=== PATIENT | male | born 1970 | race Caucasian/White ===

== ENCOUNTER 2025-02-08 16:09 | Emergency (ER) | payer OTHER ==
[2025-02-08] MEDS: SODIUM CHLORIDE 1,000 ML IV STA ×2 (16:28→17:00)
[2025-02-08] MEDS: ACETAMINOPHEN 325 MG TABLET (FP) PO ONE (16:29)
[2025-02-08 16:47] VITALS: BP 134/78; PULSE 88; RESP 18; TEMP 98.6; BMI 39.9
[2025-02-08 16:48] LABS: ABSOLUTE IMMATURE GRANULOCYTES 0.02 x10^3/uL (0.0-0.031); BASOPHILS # 0.03 x10^3/uL (0.01-0.08); EOSINOPHIL % 1.3 % (0.8-7.0); EOSINOPHILS # 0.10 x10^3/uL (0.04-0.54); MCHC 33.1 g/dl (32.3-36.5); MEAN CELL VOLUME 81.1 fl (79.0-92.2); MEAN PLT VOLUME 12.8 fl (9.4-12.4); MONOCYTE # 0.71 x10^3/uL (0.30-0.82); MONOCYTE % 9.0 % (5.3-12.2); RDW 12.8 % (12.2-16.1)
[2025-02-08 17:12] LABS: ALK PHOS 120 U/L (45-117); CO2 27 mmol/L (21-32); CREATININE 1.0 mg/dl (0.6-1.3); SGOT/AST 28 U/L (15-37); SGPT/ALT 22 U/L (7-52); TOT PROT 6.1 g/dl (6.4-8.2)
[2025-02-08 17:15] LABS: GLUCOSE,RANDOM 636 mg/dl (74-106)
[2025-02-08 18:04] LABS: BG HCT 47.0 % (35.4-49); VENOUS BASE EXCESS -3.1 mmol/L (-2-2); VENOUS O2 SATURATION 66.6 % (70-80); VENOUS PCO2 41.5 mmHg (38-52); VENOUS PH 7.35 (7.310-7.410)
[2025-02-08] MEDS: LACTATED RINGERS SOLUTION 1,000 ML/1,000 ML INFUS.BAG IV STA (18:22)
[2025-02-08 18:48] LABS: LACTIC ACID 2.1 mmol/L (0.4-2.0)
[2025-02-08 18:49] LABS: HIV INTERPRETATION NEGATIVE (NEGATIVE)
[2025-02-08 18:50] LABS: HCV DIAGNOSTIC IN-HOUSE W/RFLX NON-REACTIVE (NONREACTIVE)
[2025-02-08] MEDS ORDERED: INSULIN REGULAR HUMAN 100 UNITS/ML *VIAL ONE (19:41)
[2025-02-08] MEDS: INSULIN REGULAR HUMAN 100 UNITS/ML *VIAL IVPUSH ONE (19:42)
[2025-02-08 19:44] LABS: CO2 27 mmol/L (21-32); CREATININE 0.8 mg/dl (0.6-1.3); GLUCOSE,RANDOM 428 mg/dl (74-106)
[2025-02-08] MEDS ORDERED: metFORMIN HCL 500 MG TABLET (FP) ONE (20:47)
[2025-02-08] MEDS: metFORMIN HCL 500 MG TABLET (FP) PO ONE (20:51)
== END 2025-02-08 20:55 | disposition home or self-care (01) ==
LOC: FER 16:09
PROC: 3E033VG Introduction of Insulin into Peripheral Vein, Percutaneous Approach (ICD-10-PCS; principal; 2025-02-08)
PROC: 3E0337Z Introduction of Electrolytic and Water Balance Substance into Peripheral Vein, Percutaneous Approach (ICD-10-PCS; 2025-02-08)
PROC: 3E0337Z Introduction of Electrolytic and Water Balance Substance into Peripheral Vein, Percutaneous Approach (ICD-10-PCS; 2025-02-08)
DX: E11.65 Type 2 diabetes mellitus with hyperglycemia (principal); R53.83 Other fatigue; R51.9 Headache, unspecified; R11.0 Nausea; R35.89 Other polyuria; R63.1 Polydipsia; R42 Dizziness and giddiness
CPT/HCPCS: 36415; 80048; 80053; 81003; 82010; 82803; 82962; 83605; 83735; 85025; 86803; 86850; 86900; 86901; 87086; 87389; 93005; 93010; 99284-25

== ENCOUNTER 2025-02-09 19:07 | Emergency (ER) | payer OTHER ==
[2025-02-09] MEDS ORDERED: metFORMIN HCL 500 MG TABLET (FP) ONE (19:23)
[2025-02-09 19:24] VITALS: BP 133/94; PULSE 77; RESP 16; TEMP 98.4; BMI 39.6
[2025-02-09] MEDS ORDERED: INSULIN REGULAR HUMAN 100 UNITS/ML *VIAL ONE (19:25)
[2025-02-09] MEDS: metFORMIN HCL 500 MG TABLET (FP) PO ONE (19:26)
[2025-02-09] MEDS: INSULIN REGULAR HUMAN 100 UNITS/ML *VIAL SQ ONE (19:28)
== END 2025-02-09 19:55 | disposition home or self-care (01) ==
LOC: FER 19:07
DX: R73.09 Other abnormal glucose (principal)
CPT/HCPCS: 82962; 99283-25